=== PATIENT | female | born 1965 | race Two or more races ===

== ENCOUNTER 2016-12-22 18:37 | Emergency (ER) | payer MEDICAID ==
[~2016-12-22] VITALS: Ht 157.5 cm; Wt 87.5 kg
[2016-12-22] MEDS ORDERED: ACETAMINOPHEN 500 MG TAB PO ONE (22:30)
[2016-12-22] MEDS ORDERED: IBUPROFEN 600 MG TAB PO ONE (22:30)
[2016-12-22] MEDS ORDERED: CLINDAMYCIN 600 MG/4 ML VL IM ONE (22:30)
[2016-12-22 22:43] VITALS: BP 117/70
== END 2016-12-22 22:50 | disposition home or self-care (01) ==
LOC: ER 18:37
DX: H70.92 Unspecified mastoiditis, left ear (principal); J32.9 Chronic sinusitis, unspecified; F17.210 Nicotine dependence, cigarettes, uncomplicated; R05 Cough; Z90.49 Acquired absence of other specified parts of digestive tract
CPT/HCPCS: 70450; 71010; 96372

== ENCOUNTER 2017-01-09 11:19 | Inpatient (IN) | payer MEDICAID ==
[2017-01-09] VITALS (13 sets, daily range): BP systolic 93–110; BP diastolic 40–60
[~2017-01-09] VITALS: Ht 157.5 cm; Wt 87.7 kg
[2017-01-09 12:15] LABS: CONDITION AutoValidated; DEFINITIVE SEE PRINTOUT; Hematocrit 13.7 % (36.0-46.0); Mean Corpuscular Hemoglobin 45.7 pg (28.0-32.0); Mean Corpuscular Hgb Conc. 32.9 g/dL (32.0-36.0); Mean Corpuscular Volume 138.8 fL (80.0-100.0); Mean Platelet Volume 8.3 fL (7.4-10.4); Platelet Count (auto) 148 10^3/uL (140-450); SUSPECT SEE PRINTOUT
[2017-01-09 12:37] LABS: Albumin 2.3 g/dL (3.4-5.0); BUN/Creatinine Ratio 23.7; Bilirubin, Total 0.2 mg/dL (0.2-1.0); Calcium 8.4 mg/dL (8.5-10.1); Total Protein 6.5 g/dL (6.4-8.2)
[2017-01-09 12:41] LABS: Hemoglobin 4.5 g/dL (12.2-16.2); White Blood Cell 4.4 10^3/uL (4.4-10.8)
[2017-01-09 12:42] LABS: Metamyelocytes % 0; Myelocytes % 0; Promyelocytes % 0; Reactive Lymphocytes 0
[2017-01-09 12:43] LABS: Anisocytosis Slight; Hypersegmented Neutrophils Present; Platelet Estimate Adequate; Polychromasia Marked
[2017-01-09 12:44] LABS: Macrocytosis Marked; Schistocytes MODERATE; Tear Drop Cells FEW
[2017-01-09 12:45] LABS: Hypochromia Moderate
[2017-01-09] MEDS ORDERED: SODIUM CHLORIDE 0.9% 1,000 ML IV ONE (12:57)
[2017-01-09 13:30] LABS: Magnesium 2.1 mg/dL (1.6-2.6)
[2017-01-09 13:31] LABS: Partial Thromboplastin Time 25.7 sec (22.64-33.71)
[2017-01-09 13:32] LABS: INR 2.06 (0.9-1.15); Prothrombin Time 22.6 sec (9.37-12.3)
[2017-01-09 14:04] LABS: Urine Bilirubin Negative (Negative); Urine Color Yellow (Yellow); Urine Glucose Normal (Normal); Urine Ketone Negative (Negative); Urine Mucus FEW (None Seen); Urine Nitrite Negative (Negative); Urine RBC 1 /hpf (0 - 4); Urine Squamous Epithelial Cell FEW /hpf (<5); Urine Urobilinogen Normal (Negative)
[2017-01-09 14:05] LABS: Urine Blood 2+ /uL (Negative)
[2017-01-09] MEDS ORDERED: ACETAMINOPHEN 500 MG TAB PO ONE (16:30)
[2017-01-09] MEDS ORDERED: ONDANSETRON HCL 4 MG/2 ML VIAL IV PRN (21:15)
[2017-01-09] MEDS ORDERED: HYDROcodone-ACET 5/325MG TAB PO PRN (21:15)
[2017-01-09] MEDS ORDERED: DEXTROSE (50%) 50ML SYRG IV PRN (21:15)
[2017-01-09] MEDS ORDERED: NITROGLYCERIN 0.4 MG SL TAB SL PRN (21:15)
[2017-01-09] MEDS ORDERED: MORPHINE SULF INJ 2 MG/ML SYRINGE 1ML IV PRN (21:15)
[2017-01-09] MEDS: InsuLIN REG 1unit/0.01ml Soln (100units/ml) SC SCH (22:00)
[2017-01-09] MEDS: HYDROXYUREA 500 MG CAP PO SCH (22:00)
[2017-01-09] MEDS: ACCU-CHEK COMFORT CURVE STRIP VI SCH (22:00)
[2017-01-09] MEDS: CLINDAMYCIN HCL 150 MG CAP PO SCH (23:06)
[2017-01-09] MEDS: GABAPENTIN 300 MG CAP PO SCH (23:09)
[2017-01-10] VITALS (8 sets, daily range): BP systolic 99–123; BP diastolic 57–82
[2017-01-10] MEDS ORDERED: ROPI0.5T PO (00:53)
[2017-01-10] MEDS ORDERED: TRAM-297 PO (01:03)
[2017-01-10] MEDS ORDERED: WARF3TAB20 PO (01:03)
[2017-01-10] MEDS ORDERED: HYD500C PO (01:03)
[2017-01-10] MEDS ORDERED: LOSA50TA6 PO (01:03)
[2017-01-10] MEDS ORDERED: FLUO40CA PO (01:03)
[2017-01-10] MEDS ORDERED: TAMO20TA5 PO (01:03)
[2017-01-10] MEDS ORDERED: ACET500T26 PO (01:03)
[2017-01-10] MEDS ORDERED: METF-370 PO (01:03)
[2017-01-10] MEDS ORDERED: GABA-497 PO (01:03)
[2017-01-10] MEDS: TEMAZEPAM 15 MG CAP PO PRN (01:12)
[2017-01-10] MEDS: HYDROXYUREA 500 MG CAP PO SCH ×2 (05:42→11:19)
[2017-01-10 06:33] LABS: CONDITION AutoValidated; DEFINITIVE SEE PRINTOUT; Hematocrit 22.3 % (36.0-46.0); Hemoglobin 7.7 g/dL (12.2-16.2); Mean Corpuscular Hemoglobin 35.9 pg (28.0-32.0); Mean Corpuscular Hgb Conc. 34.4 g/dL (32.0-36.0); Mean Corpuscular Volume 104.4 fL (80.0-100.0); Mean Platelet Volume 8.7 fL (7.4-10.4); Red Cell Distribution Width 15.9 % (11.6-16.0); SUSPECT SEE PRINTOUT
[2017-01-10] MEDS: GABAPENTIN 300 MG CAP PO SCH ×2 (06:38→22:00)
[2017-01-10] MEDS: ACCU-CHEK COMFORT CURVE STRIP VI SCH ×4 (06:39→22:00)
[2017-01-10] MEDS: CLINDAMYCIN HCL 150 MG CAP PO SCH (06:39)
[2017-01-10] MEDS: InsuLIN REG 1unit/0.01ml Soln (100units/ml) SC SCH ×4 (06:45→22:00)
[2017-01-10 06:56] LABS: Platelet Count (auto) 128 10^3/uL (140-450); White Blood Cell 2.6 10^3/uL (4.4-10.8)
[2017-01-10 06:57] LABS: Metamyelocytes % 0; Myelocytes % 0; Promyelocytes % 0; Reactive Lymphocytes 0
[2017-01-10 07:20] LABS: Albumin 2.2 g/dL (3.4-5.0); BUN/Creatinine Ratio 21.3; Bilirubin, Total 0.5 mg/dL (0.2-1.0); Calcium 7.6 mg/dL (8.5-10.1); Potassium 3.7 mmol/L (3.5-5.1)
[2017-01-10 08:29] LABS: Macrocytosis Moderate; Platelet Estimate Decreased
[2017-01-10] MEDS ORDERED: LOSARTAN POTASSIUM 50 MG TAB PO SCH (10:00)
[2017-01-10] MEDS: TAMOXIFEN CITR 10 MG TAB PO SCH (10:00)
[2017-01-10] MEDS ORDERED: PANTOPRAZOLE SODIUM 40 MG/10 ML VIAL IV ONE (11:45)
[2017-01-10 13:18] LABS: Temperature: 22.5 C (20.0-25.0)
[2017-01-10] MEDS: SODIUM CHLORIDE 0.9% 1,000 ML IV SCH ×2 (13:46)
[2017-01-10] MEDS ORDERED: WARFARIN SODIUM 1 MG TAB PO ONE (17:00)
[2017-01-10] MEDS ORDERED: CYANOCOBALAMIN (B-12) 1000 MCG/1 ML VIAL SUBCUT ONE (18:00)
[2017-01-10 20:10] LABS: CONDITION Y; DEFINITIVE SEE PRINTOUT; Hematocrit 25.3 % (36.0-46.0); Hemoglobin 8.7 g/dL (12.2-16.2); Mean Corpuscular Hemoglobin 35.5 pg (28.0-32.0); Mean Corpuscular Hgb Conc. 34.5 g/dL (32.0-36.0); Mean Corpuscular Volume 102.9 fL (80.0-100.0); Mean Platelet Volume 9.1 fL (7.4-10.4); Platelet Count (auto) 122 10^3/uL (140-450); Red Cell Distribution Width 15.8 % (11.6-16.0); SUSPECT SEE PRINTOUT; White Blood Cell 3.4 10^3/uL (4.4-10.8)
[2017-01-10 20:16] LABS: Metamyelocytes % 0; Myelocytes % 0; Promyelocytes % 0; Reactive Lymphocytes 0
[2017-01-10 21:52] LABS: Burr Cells FEW; Macrocytosis Slight; Platelet Estimate Decreased; Tear Drop Cells FEW
[2017-01-11] MEDS: TEMAZEPAM 15 MG CAP PO PRN ×2 (01:41→21:09)
[2017-01-11] MEDS: MORPHINE SULF INJ 2 MG/ML SYRINGE 1ML IV PRN ×3 (03:41→20:19)
[2017-01-11 05:16] VITALS: BP 114/56
[2017-01-11] MEDS: InsuLIN REG 1unit/0.01ml Soln (100units/ml) SC SCH ×4 (05:59→22:58)
[2017-01-11] MEDS: GABAPENTIN 300 MG CAP PO SCH ×4 (06:00→22:57)
[2017-01-11] MEDS: ACCU-CHEK COMFORT CURVE STRIP VI SCH ×4 (06:00→22:00)
[2017-01-11] MEDS: SODIUM CHLORIDE 0.9% 1,000 ML IV SCH ×2 (06:26→22:58)
[2017-01-11 08:00] VITALS: BP 106/67
[2017-01-11 08:22] LABS: Reticulocyte Count 4.76 % (0.5-1.5)
[2017-01-11 08:25] LABS: CONDITION Y; DEFINITIVE SEE PRINTOUT; Hematocrit 24.8 % (36.0-46.0); Hemoglobin 8.5 g/dL (12.2-16.2); Mean Corpuscular Hgb Conc. 34.3 g/dL (32.0-36.0); Mean Platelet Volume 9.1 fL (7.4-10.4); Platelet Count (auto) 126 10^3/uL (140-450); Red Cell Distribution Width 17.1 % (11.6-16.0); SUSPECT SEE PRINTOUT; White Blood Cell 3.4 10^3/uL (4.4-10.8)
[2017-01-11 08:39] LABS: INR 1.34 (0.9-1.15); Partial Thromboplastin Time 21.9 sec (22.64-33.71)
[2017-01-11 08:50] LABS: Prothrombin Time 14.7 sec (9.37-12.3)
[2017-01-11 09:27] LABS: Metamyelocytes % 0; Myelocytes % 0; Promyelocytes % 0; Reactive Lymphocytes 0
[2017-01-11 09:28] LABS: Platelet Estimate Decreased
[2017-01-11 09:29] LABS: Anisocytosis Slight; Macrocytosis Moderate
[2017-01-11 09:30] LABS: Tear Drop Cells FEW
[2017-01-11 09:45] LABS: Albumin 2.3 g/dL (3.4-5.0); BUN/Creatinine Ratio 16.4; Bilirubin, Total 0.5 mg/dL (0.2-1.0); Calcium 7.7 mg/dL (8.5-10.1); Potassium 3.7 mmol/L (3.5-5.1); Total Protein 6.1 g/dL (6.4-8.2)
[2017-01-11 09:56] VITALS: BP 106/61
[2017-01-11] MEDS: TAMOXIFEN CITR 10 MG TAB PO SCH (10:00)
[2017-01-11] MEDS: PANTOPRAZOLE SODIUM 40 MG/10 ML VIAL IV SCH (10:00)
[2017-01-11 10:34] LABS: Wright Stain Ready for Review
[2017-01-11 13:27] VITALS: BP 112/64
[2017-01-11 16:21] VITALS: BP 105/67
[2017-01-11 18:00] VITALS: BP 101/51
[2017-01-12] MEDS: InsuLIN REG 1unit/0.01ml Soln (100units/ml) SC SCH ×4 (05:36→21:38)
[2017-01-12] MEDS: ACCU-CHEK COMFORT CURVE STRIP VI SCH ×4 (05:36→21:38)
[2017-01-12] MEDS: GABAPENTIN 300 MG CAP PO SCH ×3 (05:37→21:30)
[2017-01-12 05:45] VITALS: BP 110/60
[2017-01-12 06:26] LABS: CONDITION Y; DEFINITIVE SEE PRINTOUT; Hematocrit 25.5 % (36.0-46.0); Hemoglobin 8.6 g/dL (12.2-16.2); Mean Corpuscular Hemoglobin 35.3 pg (28.0-32.0); Mean Corpuscular Hgb Conc. 33.7 g/dL (32.0-36.0); Mean Corpuscular Volume 104.6 fL (80.0-100.0); Mean Platelet Volume 8.9 fL (7.4-10.4); Platelet Count (auto) 142 10^3/uL (140-450); Red Cell Distribution Width 15.9 % (11.6-16.0); SUSPECT SEE PRINTOUT; White Blood Cell 3.2 10^3/uL (4.4-10.8)
[2017-01-12 06:37] LABS: INR 1.11 (0.9-1.15); Partial Thromboplastin Time 18.7 sec (22.64-33.71); Prothrombin Time 12.1 sec (9.37-12.3)
[2017-01-12 06:44] LABS: Metamyelocytes % 0; Myelocytes % 0; Promyelocytes % 0; Reactive Lymphocytes 0
[2017-01-12 06:47] LABS: Potassium 3.8 mmol/L (3.5-5.1)
[2017-01-12 06:53] LABS: Albumin 2.2 g/dL (3.4-5.0); BUN/Creatinine Ratio 15.6; Calcium 7.6 mg/dL (8.5-10.1)
[2017-01-12 06:59] LABS: Bilirubin, Total 0.3 mg/dL (0.2-1.0); Total Protein 6.1 g/dL (6.4-8.2)
[2017-01-12 08:00] VITALS: BP 107/61
[2017-01-12] MEDS: SOD CHL 0.45% 1,000 ML IV SCH ×2 (08:47→19:56)
[2017-01-12 09:00] VITALS: BP 107/61
[2017-01-12] MEDS ORDERED: fentaNYL CITRATE 100 MCG/2 ML VL ONE (09:07)
[2017-01-12] MEDS ORDERED: MIDAZOLAM HCL 5 MG/ML-1ML VIAL ONE (09:07)
[2017-01-12] MEDS ORDERED: diphenhdrAMINE HCL 50 MG/1 ML VL ONE (09:07)
[2017-01-12] MEDS ORDERED: SODIUM CHLORIDE LOCK 10 ML ONE (09:07)
[2017-01-12] MEDS: PANTOPRAZOLE SODIUM 40 MG/10 ML VIAL IV SCH (10:14)
[2017-01-12] MEDS: TAMOXIFEN CITR 10 MG TAB PO SCH (10:14)
[2017-01-12 11:06] LABS: Macrocytosis Moderate
[2017-01-12 11:11] LABS: Platelet Estimate Adequate
[2017-01-12 11:13] LABS: Polychromasia Slight; Stomatocytes Few; Tear Drop Cells FEW
[2017-01-12] MEDS ORDERED: METOCLOPRAMIDE HCL 5MG/ml INJ 2ml VIAL IV ONE (12:00)
[2017-01-12 13:00] VITALS: BP 102/60
[2017-01-12] MEDS ORDERED: NALOXONE HCL 0.4 MG/ML VIAL ONE (16:20)
[2017-01-12] MEDS ORDERED: FLUMAZENIL 0.1 MG/ML INJ 10ML MDV IV ONE (16:20)
[2017-01-12 17:12] VITALS: BP 106/61
[2017-01-12] MEDS ORDERED: LIDOCAINE VISCOUS 2 % SOL 100ML MT ONE (17:39)
[2017-01-12] MEDS ORDERED: MIDAZOLAM HCL 5 MG/ML-1ML VIAL IV ONE ×2 (17:45→17:49)
[2017-01-12] MEDS ORDERED: fentaNYL CITRATE 100 MCG/2 ML VL IV ONE ×2 (17:45→17:49)
[2017-01-12 21:30] VITALS: BP 124/67
[2017-01-12] MEDS: MORPHINE SULF INJ 2 MG/ML SYRINGE 1ML IV PRN (22:38)
[2017-01-13 05:00] VITALS: BP 117/69
[2017-01-13] MEDS: GABAPENTIN 300 MG CAP PO SCH (06:02)
[2017-01-13] MEDS: ACCU-CHEK COMFORT CURVE STRIP VI SCH (06:06)
[2017-01-13] MEDS: InsuLIN REG 1unit/0.01ml Soln (100units/ml) SC SCH (06:06)
[2017-01-13 06:24] LABS: CONDITION Y; DEFINITIVE SEE PRINTOUT; Hematocrit 25.9 % (36.0-46.0); Hemoglobin 9.1 g/dL (12.2-16.2); Mean Corpuscular Hemoglobin 36.7 pg (28.0-32.0); Mean Corpuscular Hgb Conc. 35.2 g/dL (32.0-36.0); Mean Corpuscular Volume 104.3 fL (80.0-100.0); Mean Platelet Volume 8.7 fL (7.4-10.4); Red Cell Distribution Width 16.4 % (11.6-16.0); SUSPECT SEE PRINTOUT
[2017-01-13 06:39] LABS: Platelet Count (auto) 160 10^3/uL (140-450)
[2017-01-13 06:40] LABS: Metamyelocytes % 0; Myelocytes % 0; Promyelocytes % 0; Reactive Lymphocytes 0
[2017-01-13 06:43] LABS: BUN/Creatinine Ratio 14.5; Calcium 7.7 mg/dL (8.5-10.1); Potassium 3.7 mmol/L (3.5-5.1)
[2017-01-13 07:53] LABS: Platelet Estimate Adequate
[2017-01-13 07:54] LABS: Anisocytosis Slight; Giant Platelets Few; Hypersegmented Neutrophils Present; Macrocytosis Slight; Polychromasia Slight; Stomatocytes Few
[2017-01-13 08:00] VITALS: BP 114/72
[2017-01-13] MEDS ORDERED: SUCR1TAB38 OR (08:26)
[2017-01-13] MEDS ORDERED: PANT40TA2 PO (08:26)
[2017-01-13 09:00] VITALS: BP 114/72
== END 2017-01-13 11:32 | disposition home or self-care (01) | DRG 243 ==
LOC: ER 11:19 → TELE 11:20 → TELE-EAST 22:20
PROVIDERS: ADMIT Emergency Medicine; ATTEND Internal Medicine
PROC: 30233N1 Transfusion of Nonautologous Red Blood Cells into Peripheral Vein, Percutaneous Approach (ICD-10-PCS; 2017-01-09)
PROC: 0DB88ZX Excision of Small Intestine, Via Natural or Artificial Opening Endoscopic, Diagnostic (ICD-10-PCS; 2017-01-12)
PROC: 0DB68ZX Excision of Stomach, Via Natural or Artificial Opening Endoscopic, Diagnostic (ICD-10-PCS; principal; 2017-01-12 17:34)
DX: K22.11 Ulcer of esophagus with bleeding (principal); E43 Unspecified severe protein-calorie malnutrition; D68.9 Coagulation defect, unspecified; D61.818 Other pancytopenia; E11.51 Type 2 diabetes mellitus with diabetic peripheral angiopathy without gangrene; D64.9 Anemia, unspecified; K29.01 Acute gastritis with bleeding; K76.0 Fatty (change of) liver, not elsewhere classified; E11.65 Type 2 diabetes mellitus with hyperglycemia; K92.1 Melena; I10 Essential (primary) hypertension; Z85.3 Personal history of malignant neoplasm of breast; Z90.81 Acquired absence of spleen; Z79.810 Long term (current) use of selective estrogen receptor modulators (SERMs); F32.9 Major depressive disorder, single episode, unspecified; Z68.35 Body mass index [BMI] 35.0-35.9, adult; E78.5 Hyperlipidemia, unspecified; F17.210 Nicotine dependence, cigarettes, uncomplicated; K29.60 Other gastritis without bleeding; K44.9 Diaphragmatic hernia without obstruction or gangrene; Z90.49 Acquired absence of other specified parts of digestive tract; K76.9 Liver disease, unspecified; R16.0 Hepatomegaly, not elsewhere classified; Z71.89 Other specified counseling; Z90.10 Acquired absence of unspecified breast and nipple; C94.6 Myelodysplastic disease, not elsewhere classified
CPT/HCPCS: 36415; 36430; 43239; 70450; 71010; 76705; 80048; 80053; 81001; 81025; 82270; 82607; 82746; 82962; 83010; 83036; 83540; 83550; 83615; 83735; 84443; 84484; 85007; 85027; 85045; 85610; 85730; 86850; 86880; 86900; 86901; 86920; 93005; 94761; 96360; C9113; J1642; J1815; J2250; J2405

== ENCOUNTER 2019-11-14 11:41 | Inpatient (IN) | payer MEDICARE, MEDICAID ==
[~2019-11-14] VITALS: Ht 160 cm; Wt 84.6 kg
[~2019-11-14 11:41] MED LIST: FLUO40CA PO; GABA300C10 PO; LOSA-69 PO; METF-370 PO; PANT40TA2 PO; ROPI0.5T16 PO; SUCR1TAB38 OR; TAMO20TA9 PO; TRAM-297 PO; [UNRECOGNIZED DRUG - CODE] PO
[2019-11-14 14:08] LABS: Urine Bacteria MANY /hpf (None Seen); Urine Blood 1+ /uL (Negative); Urine Specific Gravity 1.011 (1.001-1.035); Urine WBC 14 /hpf (0 - 5)
[2019-11-14 14:16] LABS: Basophils # (auto) 0.1 10 ^3/uL (0-0.2); Basophils % (auto) 0.5 % (0.0-2.0); Eosinophils # (auto) 0.2 10 ^3/uL (0-0.8); Eosinophils % (auto) 1.3 % (0.0-7.0); Hematocrit 39.6 % (36.0-46.0); Hemoglobin 12.8 g/dL (12.2-16.2); Lymphocytes # (auto) 2.7 10 ^3/uL (0.4-5.4); Lymphocytes % (auto) 15.3 % (10.0-50.0); Mean Corpuscular Hemoglobin 29.4 pg (28.0-32.0); Mean Corpuscular Hgb Conc. 32.3 g/dL (32.0-36.0); Mean Corpuscular Volume 91.1 fL (80.0-100.0); Monocytes # (auto) 1.6 10 ^3/uL (0-1.3); Neutrophils # (auto) 13.1 10 ^3/uL (1.6-8.6); Neutrophils % (auto) 73.9 % (37.0-80.0); Nucleated Red Blood Cells % 0.1 %; Platelet Count (auto) 717 10^3/uL (140-450); Red Blood Cells 4.35 10^6/uL (4.0-5.20); Red Cell Distribution Width 14.7 % (11.8-14.3); White Blood Cell 17.7 10^3/uL (4.4-10.8)
[2019-11-14 14:29] LABS: Albumin 2.9 g/dL (3.4-5.0); Calcium 9.5 mg/dL (8.5-10.1); Potassium 4.3 mmol/L (3.5-5.1)
[2019-11-14 14:32] LABS: BUN/Creatinine Ratio 17.8; Bilirubin, Total 0.2 mg/dL (0.2-1.0)
[2019-11-14] MEDS ORDERED: cefTRIAXone 1GM/50ML D5W 50 ML IV ONE (15:00)
[2019-11-14] MEDS ORDERED: HYDROmorphone HCL 2 MG/ML VL IV ONE (15:00)
[2019-11-14] MEDS ORDERED: metroNIDAZOLE 500MG/100ML 100 ML IV ONE (15:00)
[2019-11-14] MEDS ORDERED: PROMETHAZINE HCL 25 MG/ML 1ML IV ONE (15:00)
[2019-11-14] MEDS ORDERED: MORPHINE SULF INJ 2 MG/ML SYRINGE 1ML IV PRN (15:15)
[2019-11-14] MEDS ORDERED: NITROGLYCERIN 0.4 MG SL TAB SL PRN (15:15)
[2019-11-14] MEDS ORDERED: DEXTROSE (50%) 50ML SYRG IV PRN (15:15)
[2019-11-14] MEDS ORDERED: ACETAMINOPHEN 500 MG TAB PO PRN (15:15)
--- NOTE | 2019-11-14 15:35 | NUR ---
Telemetry admit from ER DE UBALDO BRAUN admitted to Telemetry unit after SBAR received. Patient oriented to KATY TARANGO RN primary RN, unit, room, bed, and unit policies regarding patient care and visiting hours. Patient now on continuous telemetry monitoring, tele box #[id number] and telemetry reading on arrival to unit is . Patient placed on weighed by bedscale and encouraged to call if they need something. All questions and concerns addressed, patient verbalized understanding. Note:
[2019-11-14] MEDS ORDERED: ATOR1TAB PO (16:22)
[2019-11-14] MEDS ORDERED: INSU1INJ19 SC (16:22)
[2019-11-14] MEDS ORDERED: GABA-339 PO (16:22)
[2019-11-14] MEDS ORDERED: LOSA-39 PO (16:22)
[2019-11-14 17:00] VITALS: BP 134/75
--- NOTE | 2019-11-14 18:15 | NUR ---
PATIENT REFUSED FC PATIENT REFUSED DEL REAL CATHETER, FC AT BEDSIDE.
[2019-11-14] MEDS: TAMSULOSIN HYDROCHLORIDE 0.4 MG CAP PO SCH (19:35)
[2019-11-14] MEDS: SODIUM CHLORIDE 0.9% 1,000 ML IV SCH ×2 (19:35→23:03)
[2019-11-14] MEDS: ACCU-CHEK COMFORT CURVE STRIP VI SCH ×2 (19:36→21:49)
[2019-11-14] MEDS: HYDROcodone-ACET 5/325MG TAB PO PRN (19:36)
[2019-11-14] MEDS: InsuLIN REG 1unit/0.01ml Soln (100units/ml) SC SCH ×2 (19:39→21:49)
--- NOTE | 2019-11-14 19:45 | NUR ---
Opening Shift Note Assumed care of patient, awake and alert, oriented x 4, follows directions, clear speech. On room air with even and unlabored respirations, no S/S of distress or SOB. Noted hypoactive bowel sound, abd non-tender upon palpations. Patient denies any difficulty voiding, no bladder distention noted. Patient refuses NGT, remains NPO. PIV right forearm intact and patent infusing IVF per orders. Patient independently turns in bed and ambulates with steady gait. Bed in lowest locked position with side rails up x 2 and call light within reach. Instructed on POC and to call for assist PRN, will continue to monitor for changes Q1hr and PRN.
[2019-11-14] MEDS: MORPHINE SULF INJ 2 MG/ML SYRINGE 1ML IV PRN (21:30)
[2019-11-14] MEDS: metroNIDAZOLE 500MG/100ML 100 ML IV SCH (21:33)
[2019-11-14] MEDS: DOCUSATE SOD 100 MG CAP PO SCH (21:36)
[2019-11-14 22:00] VITALS: BP 130/72
[2019-11-15] MEDS ORDERED: IBUP600T27 PO (00:38)
[2019-11-15] MEDS: MORPHINE SULF INJ 2 MG/ML SYRINGE 1ML IV PRN ×3 (02:23→13:33)
[2019-11-15] MEDS: ONDANSETRON HCL 4 MG/2 ML VIAL IV PRN ×2 (02:33→09:26)
[2019-11-15 04:50] VITALS: BP 121/56
[2019-11-15] MEDS: metroNIDAZOLE 500MG/100ML 100 ML IV SCH ×3 (05:38→21:59)
[2019-11-15] MEDS: HYDROcodone-ACET 5/325MG TAB PO PRN (06:04)
[2019-11-15] MEDS: ACCU-CHEK COMFORT CURVE STRIP VI SCH ×4 (06:04→22:00)
[2019-11-15 06:05] LABS: Basophils # (auto) 0.1 10 ^3/uL (0-0.2); Eosinophils # (auto) 0.2 10 ^3/uL (0-0.8); Hemoglobin 11.8 g/dL (12.2-16.2); Lymphocytes # (auto) 2.8 10 ^3/uL (0.4-5.4); Nucleated Red Blood Cells % 0.1 %
[2019-11-15] MEDS: InsuLIN REG 1unit/0.01ml Soln (100units/ml) SC SCH ×4 (06:05→22:00)
[2019-11-15 06:07] LABS: Basophils % (auto) 0.8 % (0.0-2.0); Eosinophils % (auto) 1.5 % (0.0-7.0); Hematocrit 36.2 % (36.0-46.0); Lymphocytes % (auto) 19.2 % (10.0-50.0); Mean Corpuscular Hgb Conc. 32.6 g/dL (32.0-36.0); Mean Corpuscular Volume 92.2 fL (80.0-100.0); Monocytes # (auto) 1.4 10 ^3/uL (0-1.3); Monocytes % (auto) 9.7 % (0.0-12.0); Neutrophils # (auto) 10.1 10 ^3/uL (1.6-8.6); Neutrophils % (auto) 68.8 % (37.0-80.0); Platelet Count (auto) 666 10^3/uL (140-450); Red Blood Cells 3.92 10^6/uL (4.0-5.20); Red Cell Distribution Width 14.4 % (11.8-14.3); White Blood Cell 14.6 10^3/uL (4.4-10.8)
[2019-11-15 06:31] LABS: Calcium 8.7 mg/dL (8.5-10.1); Potassium 3.7 mmol/L (3.5-5.1)
[2019-11-15 06:34] LABS: BUN/Creatinine Ratio 14.2
--- NOTE | 2019-11-15 06:42 | NUR ---
Closing Note patient resting in bed with even and unlabored respirations, no s/s of distress. IVF infusing per orders. no s/s of distress.
[2019-11-15] MEDS: SODIUM CHLORIDE 0.9% 1,000 ML IV SCH ×3 (07:03→23:03)
--- NOTE | 2019-11-15 07:10 | NUR ---
OOPENING NOTE PATIENT RESTING IN BED ON LEFT SIDE, PATIENT STATED PAIN WAS TOLERABLE AT 3-5/LEFT LOWER ABDOMEN PAIN,AND WILL WAIT FOR NEXT PAIN MEDICATION THAT IS AVAILABLE. NO NOTED SOB, CP, N/V/D. WILL CONTINUE TO MONITOR.
[2019-11-15 08:15] VITALS: BP 92/63
[2019-11-15 09:00] VITALS: BP 92/63
[2019-11-15] MEDS: cefTRIAXone 1GM/50ML D5W 50 ML IV SCH (09:05)
[2019-11-15] MEDS: DOCUSATE SOD 100 MG CAP PO SCH ×2 (10:05→22:00)
[2019-11-15] MEDS: FAMOTIDINE 20 MG TAB PO SCH (10:05)
[2019-11-15 10:58] LABS: INR 1.05 (0.9-1.15)
[2019-11-15 13:00] VITALS: BP 104/64
--- NOTE | 2019-11-15 15:00 | NUR ---
PT REFUSING TO SIGN CONSENTS FOR NEPHROSTOMY TUBE. WANTS TO SPEAK WITH FIRST
[2019-11-15] MEDS ORDERED: ASPI-498 PO (15:16)
[2019-11-15 16:47] VITALS: BP 113/65
--- NOTE | 2019-11-15 18:25 | NUR ---
IR RN AT BEDSIDE RN EXPLAINING NEPHROSTOMY TUBE PLACEMENT AND WRITTEN CONSENTS.
[2019-11-15] MEDS: TAMSULOSIN HYDROCHLORIDE 0.4 MG CAP PO SCH (18:30)
--- NOTE | 2019-11-15 18:30 | NUR ---
NPO PATIENT IS TO BE NPO AFTER MIDNIGHT FOR UROLOGY PROCEDURE ON 11/16/2019.
--- NOTE | 2019-11-15 19:30 | NUR ---
CHANGE OF SHIFT GAVE REPORT TO NOC ROBERTO LUCAS, PATIENT IN PAIN, 6/10 RECEIVED 50MG OF TRAMADOL.
--- NOTE | 2019-11-15 19:32 | NUR ---
Opening Shift Note Assumed care of patient, awake and alert. No S/S of distress/SOB. Patient complains of pain will medicate per MD orders. Instructed on POC and to call for assist PRN, will continue to monitor for changes Q1hr and PRN. Safety precautions maintained bed is in lowest position and bed rails 2x. Call light and bedside table within reach. Made patient aware that she will be NPO after midnight for procedure.
[2019-11-15 22:00] VITALS: BP 116/64
[2019-11-15] MEDS: traMADol HCL 50 MG TAB PO PRN (23:39)
[2019-11-16] VITALS (7 sets, daily range): BP systolic 113–140; BP diastolic 60–77
[2019-11-16] MEDS: MORPHINE SULF INJ 2 MG/ML SYRINGE 1ML IV PRN ×5 (05:59→21:08)
[2019-11-16 06:13] LABS: Basophils # (auto) 0.1 10 ^3/uL (0-0.2); Eosinophils # (auto) 0.3 10 ^3/uL (0-0.8); Nucleated Red Blood Cells % 0.1 %; Red Cell Distribution Width 14.6 % (11.8-14.3)
[2019-11-16 06:16] LABS: Hematocrit 36.6 % (36.0-46.0); Hemoglobin 11.8 g/dL (12.2-16.2); Lymphocytes # (auto) 2.7 10 ^3/uL (0.4-5.4); Lymphocytes % (auto) 19.8 % (10.0-50.0); Mean Corpuscular Hemoglobin 29.3 pg (28.0-32.0); Mean Corpuscular Hgb Conc. 32.1 g/dL (32.0-36.0); Mean Corpuscular Volume 91.2 fL (80.0-100.0); Monocytes # (auto) 1.3 10 ^3/uL (0-1.3); Monocytes % (auto) 9.6 % (0.0-12.0); Neutrophils # (auto) 9.3 10 ^3/uL (1.6-8.6); Neutrophils % (auto) 67.6 % (37.0-80.0); Platelet Count (auto) 626 10^3/uL (140-450); Red Blood Cells 4.02 10^6/uL (4.0-5.20); White Blood Cell 13.8 10^3/uL (4.4-10.8)
[2019-11-16 06:33] LABS: Albumin 2.6 g/dL (3.4-5.0); Calcium 8.5 mg/dL (8.5-10.1); Potassium 3.5 mmol/L (3.5-5.1)
[2019-11-16 06:37] LABS: BUN/Creatinine Ratio 10.5; Bilirubin, Total 0.2 mg/dL (0.2-1.0); Total Protein 8.5 g/dL (6.4-8.2)
[2019-11-16] MEDS: metroNIDAZOLE 500MG/100ML 100 ML IV SCH ×2 (06:44→16:55)
[2019-11-16] MEDS: SODIUM CHLORIDE 0.9% 1,000 ML IV SCH ×3 (06:44→23:30)
[2019-11-16] MEDS: ACCU-CHEK COMFORT CURVE STRIP VI SCH ×4 (07:05→22:00)
[2019-11-16] MEDS: InsuLIN REG 1unit/0.01ml Soln (100units/ml) SC SCH ×4 (07:07→22:00)
[2019-11-16] MEDS: cefTRIAXone 1GM/50ML D5W 50 ML IV SCH (08:36)
[2019-11-16] MEDS: FAMOTIDINE 20 MG TAB PO SCH (08:37)
[2019-11-16] MEDS: DOCUSATE SOD 100 MG CAP PO SCH ×2 (08:44→21:07)
--- NOTE | 2019-11-16 12:30 | NUR ---
Took patient down to labels molder after consents signed for right nephrostomy placement.
[2019-11-16] MEDS ORDERED: ONDANSETRON HCL 4 MG/2 ML VIAL ONE (13:51)
[2019-11-16] MEDS ORDERED: diphenhdrAMINE HCL 50 MG/1 ML VL ONE (13:51)
[2019-11-16] MEDS ORDERED: IOHEXOL 350 MG/ML 100ML IJ ONE (13:56)
[2019-11-16] MEDS ORDERED: LIDOCAINE 2%HCL (LOCAL ANESTH.) INJ 20ML MDV ONE (13:56)
[2019-11-16] MEDS ORDERED: MIDAZOLAM HCL 1MG/1ML-2 ML VIAL ONE (13:57)
[2019-11-16] MEDS ORDERED: fentaNYL CITRATE 100 MCG/2 ML VL ONE (13:57)
--- NOTE | 2019-11-16 13:58 | NUR ---
Spoke with Dr. Batista and gave update on patient status
[2019-11-16] MEDS: TAMSULOSIN HYDROCHLORIDE 0.4 MG CAP PO SCH (18:05)
--- NOTE | 2019-11-16 19:25 | NUR ---
Opening Shift Note Assumed care of patient, awake and alert. No S/S of distress or SOB, currently c/o pain to right lateral nephrostomy site 12/01, will medicate as ordered. Instructed on POC and to call for assist PRN, call light within reach, will continue to monitor for changes Q1hr and PRN.
--- NOTE | 2019-11-16 20:55 | NUR ---
ACTIVITY PT ASSISTED TO BATHROOM, GAIT STEADY, NEPHROSTOMY INTACT, ASSISTED BACK TO BED, REPOSITIONED, CALL LIGHT WITHIN REACH, CONT CARE
[2019-11-16] MEDS: traMADol HCL 50 MG TAB PO PRN (23:30)
[2019-11-17] VITALS (7 sets, daily range): BP systolic 104–126; BP diastolic 54–70
--- NOTE | 2019-11-17 00:30 | NUR ---
PAIN Patient reports 01/01 throbbing pain in right lower back that radiates down the right buttock. Medicated for pain according to orders. Addendum: 11/18/19 at 0332 by MALGORZATA TREVINO RN RN incorrect date. Correct date/time is 11/18/19 @ 0030
[2019-11-17] MEDS: metroNIDAZOLE 500MG/100ML 100 ML IV SCH ×3 (02:33→18:08)
[2019-11-17] MEDS: MORPHINE SULF INJ 2 MG/ML SYRINGE 1ML IV PRN ×4 (02:59→20:31)
[2019-11-17 06:18] LABS: Basophils # (auto) 0.1 10 ^3/uL (0-0.2); Basophils % (auto) 0.4 % (0.0-2.0); Eosinophils # (auto) 0.2 10 ^3/uL (0-0.8); Eosinophils % (auto) 1.6 % (0.0-7.0); Hemoglobin 11.1 g/dL (12.2-16.2); Lymphocytes # (auto) 3.2 10 ^3/uL (0.4-5.4); Lymphocytes % (auto) 21.6 % (10.0-50.0); Mean Corpuscular Hemoglobin 29.5 pg (28.0-32.0); Mean Corpuscular Hgb Conc. 32.6 g/dL (32.0-36.0); Mean Corpuscular Volume 90.6 fL (80.0-100.0); Monocytes # (auto) 1.4 10 ^3/uL (0-1.3); Monocytes % (auto) 9.5 % (0.0-12.0); Neutrophils # (auto) 9.9 10 ^3/uL (1.6-8.6); Neutrophils % (auto) 66.9 % (37.0-80.0); Nucleated Red Blood Cells % 0.2 %; Platelet Count (auto) 628 10^3/uL (140-450); Red Blood Cells 3.76 10^6/uL (4.0-5.20); Red Cell Distribution Width 14.7 % (11.8-14.3); White Blood Cell 14.8 10^3/uL (4.4-10.8)
[2019-11-17] MEDS: InsuLIN REG 1unit/0.01ml Soln (100units/ml) SC SCH ×4 (06:34→21:46)
[2019-11-17] MEDS: SODIUM CHLORIDE 0.9% 1,000 ML IV SCH ×3 (06:35→22:06)
[2019-11-17] MEDS: ACCU-CHEK COMFORT CURVE STRIP VI SCH ×4 (06:35→21:36)
[2019-11-17 06:40] LABS: Potassium 3.7 mmol/L (3.5-5.1)
[2019-11-17 06:57] LABS: Albumin 2.4 g/dL (3.4-5.0); BUN/Creatinine Ratio 9.5; Bilirubin, Total 0.2 mg/dL (0.2-1.0); Calcium 8.3 mg/dL (8.5-10.1); Total Protein 7.7 g/dL (6.4-8.2)
[2019-11-17] MEDS: cefTRIAXone 1GM/50ML D5W 50 ML IV SCH (08:57)
[2019-11-17] MEDS: DOCUSATE SOD 100 MG CAP PO SCH ×2 (08:57→21:39)
[2019-11-17] MEDS: FAMOTIDINE 20 MG TAB PO SCH (08:58)
--- NOTE | 2019-11-17 11:30 | NUR ---
Dr. Enriquez at patients bedside to discuss plan of care
[2019-11-17] MEDS: TAMSULOSIN HYDROCHLORIDE 0.4 MG CAP PO SCH (18:07)
--- NOTE | 2019-11-17 18:29 | NUR ---
Patients right nephrostomy tube is draining clear light yellow urine. Emptied multiple times today for a total of 900 ml for the shift. Patient is still voiding in toilet also. Will continue to monitor for any changes in condition.
--- NOTE | 2019-11-17 19:15 | NUR ---
OPENING SHIFT NOTE Assumed care of patient who is A&O x4. Currently on RA with no s/s of distress. Reports 8/10 pain to right flank. Pain management options discussed. Patient is ambulatory without the use of assistive devices at baseline. Nephrostomy tube in place at right flank. patient reports emptying the collection bag herself "just now". Insertion site is CDI. PIV in right forearm is intact and patent. Currently infusing IVF as ordered. POC discussed and patient verbalized understanding. Bed is in low locked position with side rails up x2. Call light is within reach and patient encouraged to call for assistance when needed. Will continue to monitor for changes PRN.
--- NOTE | 2019-11-17 20:31 | NUR ---
PAIN Patient medicated for reported throbbing pain to right flank, radiating to right buttocks. Continued monitoring for improvement.
--- NOTE | 2019-11-17 21:40 | NUR ---
PAIN Patient reports pain 6/10 to right flank area. Tramadol 50mg administered for breakthrough pain. Continued monitoring for improvement to be provided.
[2019-11-17] MEDS: traMADol HCL 50 MG TAB PO PRN (21:50)
--- NOTE | 2019-11-17 23:30 | NUR ---
Patient requesting sleep aid. Hospitalist called to request order.
--- NOTE | 2019-11-18 00:03 | NUR ---
HOSPITALIST Spoke with Dr. Robertson. New orders received, read back and verified.
[2019-11-18] MEDS ORDERED: TEMAZEPAM 15 MG CAP PO PRN (00:15)
[2019-11-18] MEDS: MORPHINE SULF INJ 2 MG/ML SYRINGE 1ML IV PRN ×2 (00:30→04:33)
[2019-11-18] MEDS: metroNIDAZOLE 500MG/100ML 100 ML IV SCH ×2 (00:30→09:26)
[2019-11-18 05:00] VITALS: BP 121/60
[2019-11-18] MEDS: ACCU-CHEK COMFORT CURVE STRIP VI SCH ×2 (06:30→12:12)
[2019-11-18] MEDS: SODIUM CHLORIDE 0.9% 1,000 ML IV SCH (06:30)
[2019-11-18] MEDS: InsuLIN REG 1unit/0.01ml Soln (100units/ml) SC SCH ×2 (06:32→12:12)
[2019-11-18 08:00] VITALS: BP 107/58
[2019-11-18 08:40] VITALS: BP 107/58
[2019-11-18] MEDS: FAMOTIDINE 20 MG TAB PO SCH (09:26)
[2019-11-18] MEDS: DOCUSATE SOD 100 MG CAP PO SCH (09:26)
[2019-11-18] MEDS: cefTRIAXone 1GM/50ML D5W 50 ML IV SCH (10:00)
[2019-11-18 10:33] VITALS: BP 107/58
[2019-11-18] MEDS: traMADol HCL 50 MG TAB PO PRN (12:04)
[2019-11-18 13:00] VITALS: BP 118/67
--- NOTE | 2019-11-18 13:04 | NUR ---
Discharge instructions given as ordered. Encourage to follow up with your primary health care provider Dr. Dolan as instructed. Also educated on following up with Dr. Batista and Dr. Pagan. All questions and concerns addressed. Patient verbalized understanding. Medication reconciliation form completed and copy given to patient. IV removed with catheter intact, pressure dressing applied. Telemetry unit returned to ICU. Patient taken to vehicle via wheelchair with all personal belongings, accompanied by staff and family member. No distress noted at time of departure.
== END 2019-11-18 13:04 | disposition home or self-care (01) | DRG 871 ==
LOC: ER 11:41 → TELE 11:42 → TELE-WESTW 16:02
PROVIDERS: ADMIT Nurse Practitioner Acute Care; ATTEND Family Medicine
PROC: 0T9030Z Drainage of Right Kidney with Drainage Device, Percutaneous Approach (ICD-10-PCS; principal; 2019-11-16)
PROC: BT1D1ZZ Fluoroscopy of Right Kidney, Ureter and Bladder using Low Osmolar Contrast (ICD-10-PCS; 2019-11-16)
PROC: BT41ZZZ Ultrasonography of Right Kidney (ICD-10-PCS; 2019-11-16)
DX: A41.9 Sepsis, unspecified organism (principal); N17.0 Acute kidney failure with tubular necrosis; K57.20 Diverticulitis of large intestine with perforation and abscess without bleeding; E44.0 Moderate protein-calorie malnutrition; N13.6 Pyonephrosis; I13.0 Hypertensive heart and chronic kidney disease with heart failure and stage 1 through stage 4 chronic kidney disease, or unspecified chronic kidney disease; E66.9 Obesity, unspecified; E88.09 Other disorders of plasma-protein metabolism, not elsewhere classified; I50.9 Heart failure, unspecified; E11.22 Type 2 diabetes mellitus with diabetic chronic kidney disease; E11.40 Type 2 diabetes mellitus with diabetic neuropathy, unspecified; F17.210 Nicotine dependence, cigarettes, uncomplicated; K46.9 Unspecified abdominal hernia without obstruction or gangrene; D25.9 Leiomyoma of uterus, unspecified; Z90.81 Acquired absence of spleen; Z79.4 Long term (current) use of insulin; Z85.3 Personal history of malignant neoplasm of breast; Z92.3 Personal history of irradiation; Z90.49 Acquired absence of other specified parts of digestive tract; Z68.33 Body mass index [BMI] 33.0-33.9, adult; I25.2 Old myocardial infarction; Z79.899 Other long term (current) drug therapy; Z82.49 Family history of ischemic heart disease and other diseases of the circulatory system; Z83.3 Family history of diabetes mellitus; Z82.3 Family history of stroke; Z93.6 Other artificial openings of urinary tract status; N28.1 Cyst of kidney, acquired; N18.3 Chronic kidney disease, stage 3 (moderate)
CPT/HCPCS: 36415; 51702; 71045; 74176; 74425; 76775; 76942; 80048; 80053; 81001; 82962; 83036; 85025; 85610; 86850; 86900; 86901; 87040; 87086; 87088; 87186; 93926; 96365; 96368; 96375; 99152; C1729; G0378; J0696; J1815; J2250; J2405; J3490